=== PATIENT | female | born 1985 | race Caucasian/White ===

== ENCOUNTER 2017-04-24 15:05 | Emergency (ER) | payer SELFPAY | END 2017-04-24 18:17 | disposition home or self-care (01) | LOC: D.ER 15:05 | DX: S16.1XXA Strain of muscle, fascia and tendon at neck level, initial encounter (principal); V43.52XA Car driver injured in collision with other type car in traffic accident, initial encounter; Y93.89 Activity, other specified; Y92.410 Unspecified street and highway as the place of occurrence of the external cause; S80.02XA Contusion of left knee, initial encounter; F17.200 Nicotine dependence, unspecified, uncomplicated ==

== ENCOUNTER 2019-07-28 08:45 | Emergency (ER) | payer SELFPAY ==
[~2019-07-28] VITALS: Ht 170.2 cm; Wt 86.4 kg
[2019-07-28 08:51] VITALS: Ht 170.2 cm; Wt 86.4 kg
[2019-07-28] MEDS ORDERED: HYDROCODON-ACE1 EAC7 PO (10:07)
[2019-07-28 10:40] VITALS: BP 115/68
== END 2019-07-28 10:53 | disposition home or self-care (01) ==
LOC: D.ER 08:45
DX: S53.105A Unspecified dislocation of left ulnohumeral joint, initial encounter (principal); S80.811A Abrasion, right lower leg, initial encounter; W19.XXXA Unspecified fall, initial encounter; Y93.9 Activity, unspecified; Y92.9 Unspecified place or not applicable

== ENCOUNTER 2019-11-07 23:46 | Emergency (ER) | payer SELFPAY ==
[~2019-11-07] VITALS: Ht 170.2 cm; Wt 68.2 kg
[~2019-11-07 23:46] MED LIST: HYDROCODON-ACE1 EAC7 PO
[2019-11-07 23:56] VITALS: Ht 170.2 cm; Wt 68.2 kg
[2019-11-08] MEDS ORDERED: AUGMENTIN 875-11 TAB PO (00:06)
[2019-11-08] MEDS ORDERED: TORADOL10 MG PO (00:06)
[2019-11-08 00:26] VITALS: BP 114/85
== END 2019-11-08 00:36 | disposition home or self-care (01) ==
LOC: D.ER 23:46
DX: H66.91 Otitis media, unspecified, right ear (principal); Z72.0 Tobacco use

== ENCOUNTER 2020-06-30 15:46 | Emergency (ER) | payer SELFPAY ==
[~2020-06-30] VITALS: Ht 170.2 cm; Wt 77.3 kg
[~2020-06-30 15:46] MED LIST changes: +AUGMENTIN 875-11 TAB PO; +TORADOL10 MG PO
[2020-06-30 16:23] VITALS: BP 121/68; Ht 170.2 cm; Wt 77.3 kg
[2020-06-30] MEDS ORDERED: DICLOFENAC SODI50 MG PO (17:04)
[2020-06-30] MEDS ORDERED: CEPHALEXIN500 M1 PO (17:04)
[2020-06-30] MEDS ORDERED: CLEOCIN HCL300 MG PO (17:04)
[2020-06-30 17:50] LABS: BASOPHILS 0.4 % (0-2); EOSINOPHILS 1.9 % (0-7); HEMOGLOBIN 14.6 g/dL (12-16); IMMATURE GRANULOCYTES 0.3 % (0-5); LYMPHOCYTE ABS# 2.35 10x3/uL (1.18-3.74); LYMPHOCYTES 32.2 % (15-50); MCH 36.5 pg (26.0-34.0); MCHC 34.8 g/dL (31.0-37.0); MEAN PLATELET VOLUME 9.9 fL (7.4-10.4); MONOCYTES 9.1 % (2-11); NEUTROPHIL ABS# 4.09 10x3/uL (1.56-6.13); NEUTROPHILS 56.1 % (40-80); RDW 14.2 % (11.5-14.5); WBC 7.3 10x3/uL (4.8-10.8)
[2020-06-30 17:51] LABS: PLATELET COUNT 240 10x3/uL (130-400)
[2020-06-30 18:00] LABS: CALC OSMOLALITY 280 mosm/kg (275-300); CALCIUM 8.1 mg/dL (8.5-10.1); CARBON DIOXIDE 21.9 mmol/L (21.0-32.0); CHLORIDE - SERUM 107 mmol/L (98-107); CREATININE - SERUM 0.6 mg/dL (0.6-1.3); GLUCOSE 86 mg/dL (74-106); POTASSIUM - SERUM 3.1 mmol/L (3.5-5.1); SODIUM 143 mmol/L (136-145); UREA NITROGEN 5 mg/dL (7-18); eGFR NON AFRICAN AMERICAN > 90 mL/min (90-120)
[2020-06-30 18:06] LABS: ALBUMIN 2.9 g/dL (3.4-5.0); ALKALINE PHOSPHATASE 85 U/L (30-120); ALT (SGPT) 46 U/L (10-68); BILIRUBIN - TOTAL 0.22 mg/dL (0.2-1.3); PROTEIN - SERUM 6.6 g/dL (6.4-8.2)
== END 2020-06-30 18:27 | disposition home or self-care (01) ==
LOC: D.ER 15:46
PROVIDERS: Family Medicine
DX: L02.416 Cutaneous abscess of left lower limb (principal); E87.6 Hypokalemia